=== PATIENT | male | born 1970 | race Caucasian/White ===

== ENCOUNTER 2017-01-25 15:02 | Emergency (ER) | payer BC ==
[~2017-01-25] VITALS: Ht 180.3 cm; Wt 91.0 kg
[2017-01-25] MEDS ORDERED: ALPR0.255 PO (15:30)
[2017-01-25] MEDS ORDERED: FLUO-191 PO (15:30)
[2017-01-25] MEDS ORDERED: TraMADol HCL 50 MG TABLET PO ONE (16:00)
[2017-01-25] MEDS ORDERED: PERTUSS(ACELL),DIPH,TET VAC/PF 0.5 ML VIAL IM ONE (16:30)
[2017-01-25 16:50] VITALS: BP 128/88
== END 2017-01-25 16:52 | disposition home or self-care (01) ==
LOC: EMS 15:04
DX: S00.511A Abrasion of lip, initial encounter (principal); S00.31XA Abrasion of nose, initial encounter; W18.40XA Slipping, tripping and stumbling without falling, unspecified, initial encounter; Y93.01 Activity, walking, marching and hiking; Y92.89 Other specified places as the place of occurrence of the external cause; Y99.8 Other external cause status
CPT/HCPCS: 99283